=== PATIENT | female | born 2000 | race Caucasian/White ===

== ENCOUNTER 2018-06-27 13:06 | Emergency (ER) | payer OTHER ==
[2018-06-27 13:15] VITALS: BP 113/65; PULSE 98; TEMP 98.2; BMI 21.2
--- NOTE | 2018-06-27 14:10 | PDOC ---
History of Present Illness - General Chief Complaint: Abscess Boil Stated Complaint: TONGUE DISCOMFORT Time Seen by Provider: 06/27/18 13:53 History Source: Patient Exam Limitations: No Limitations - History of Present Illness Initial Comments: 06/27/18 14:09 Came for evaluation of lesion to lower gingival border anterior to of tongue. States is nontender but swells in the morning. Has had no trauma however admits may have had a hot cup of hot chocolate this week and may burned her mouth. Timing/Duration: unsure Severity: mild Past History - Travel Traveled outside of the country in the last 30 days: No Close contact w/someone who was outside of country & ill: No - Past Medical History Allergies/Adverse Reactions: Allergies Allergy/AdvReac Type Severity Reaction Status Date / Time No Known Allergies Allergy Verified 06/27/18 13:15 Home Medications: Ambulatory Orders NK [No Known Home Medication] 06/27/18 Asthma: No Cancer: No Cardiac Disorders: No COPD: No Diabetes: No HTN: No Seizures: No Thyroid Disease: No - Immunization History Immunization Up to Date: Yes - Suicide/Smoking/Psychosocial Hx Smoking Status: No Smoking History: Never smoked Have you smoked in the past 12 months: No Number of Cigarettes Smoked Daily: 0 Hx Alcohol Use: No Drug/Substance Use Hx: No Hx Substance Use Treatment: No Review of Systems - Review of Systems Able to Perform ROS?: Yes Is the patient limited Thai proficient: Yes Constitutional: Yes: Symptoms Reported, See HPI, Malaise HEENTM: Yes: Symptoms Reported, Dental Problems, Mouth Swelling Musculoskeletal: No: Symptoms Reported Integumentary: No: Symptoms Reported Neurological: No: Symptoms reported All Other Systems: Reviewed and Negative *Physical Exam - Vital Signs Last Vital Signs Temp Pulse Resp BP Pulse Ox 98.2 F 98 H 18 113/65 99 06/27/18 13:12 06/27/18 13:12 06/27/18 13:12 06/27/18 13:12 06/27/18 13:12 - Physical Exam General Appearance: Yes: Nourished, Appropriately Dressed. No: Apparent Distress HEENT: positive: NICOLE, Normal ENT Inspection, TMs Normal, Pharynx Normal, Other (small papular lesion to the anterior aspect lower gum border anterior to frenulum of tongue. His nontender, non-erythematous, no drainage noted.). negative: Rhinorrhea Neck: positive: Supple. negative: Tender, Lymphadenopathy (R), Lymphadenopathy (L) Respiratory/Chest: positive: Lungs Clear, Normal Breath Sounds Gastrointestinal/Abdominal: positive: Soft Extremity: positive: Normal Capillary Refill Integumentary: positive: Normal Color, Dry, Warm Neurologic: positive: oriental medicine practitioner II-XII NML intact, Fully Oriented, Alert, Normal Mood/ Affect, Normal Response, Motor Strength 5/5 *DC/Admit/Observation/Transfer Diagnosis at time of Disposition: Oral mucosal lesion - Discharge Dispostion Disposition: HOME Condition at time of disposition: Stable Decision to Admit order: No - Referrals - Patient Instructions Printed Discharge Instructions: Gingivitis Additional Instructions: Rest, drink lots of fluids: Teas, water, soups Saltwater gargles/ keep mouth clean and rinse after each meal May use wet teabag for pain relief to area Avoid hard chewing foods, stick to ice cream, Jell-O, yogurt etc. Tylenol or Motrin for fever and pain Complete all medication as prescribed Seek dental appointment as soon as possible for evaluation of lesion Followup with private physician in one to 2 days as needed Return to emergency department for worsened symptoms, fevers, swelling to face or worsened pain - Post Discharge Activity
== END 2018-06-27 14:12 | disposition home or self-care (01) ==
LOC: JERFT 13:06
DX: K13.79 Other lesions of oral mucosa (principal)
CPT/HCPCS: 99281-25

== ENCOUNTER 2019-04-23 15:53 | Emergency (ER) | payer OTHER ==
[2019-04-23 16:11] VITALS: BP 105/61; PULSE 85; TEMP 98.9; BMI 21.4
--- NOTE | 2019-04-23 16:19 | PDOC ---
History of Present Illness - General Chief Complaint: Foreign Body (FB) Stated Complaint: F/B IN EAR Time Seen by Provider: 04/23/19 16:09 History Source: Patient - History of Present Illness Timing/Duration: 4-6 hours Past History - Past Medical History Allergies/Adverse Reactions: Allergies Allergy/AdvReac Type Severity Reaction Status Date / Time No Known Allergies Allergy Verified 06/27/18 13:15 Home Medications: Ambulatory Orders NK [No Known Home Medication] 06/27/18 Asthma: No Cancer: No Cardiac Disorders: No COPD: No Diabetes: No HTN: No Seizures: No Thyroid Disease: No - Immunization History Immunization Up to Date: Yes - Psycho Social/Smoking Cessation Hx Smoking Status: No Smoking History: Never smoked Have you smoked in the past 12 months: No Number of Cigarettes Smoked Daily: 0 Information on smoking cessation initiated: No Hx Alcohol Use: No Drug/Substance Use Hx: No Hx Substance Use Treatment: No Review of Systems - Review of Systems HEENTM: No: Ear Pain *Physical Exam - Vital Signs Last Vital Signs Temp Pulse Resp BP Pulse Ox 98.9 F 85 18 105/61 98 04/23/19 16:08 04/23/19 16:08 04/23/19 16:08 04/23/19 16:08 04/23/19 16:08 - Physical Exam General Appearance: Yes: Appropriately Dressed. No: Apparent Distress HEENT: positive: Normal ENT Inspection, Normal Voice, TMs Normal, Pharynx Normal. negative: Scleral Icterus (R), Scleral Icterus (L) Neck: positive: Supple Respiratory/Chest: negative: Respiratory Distress Integumentary: positive: Dry, Warm Neurologic: positive: Fully Oriented, Alert, Normal Mood/Affect Medical Decision Making - Medical Decision Making 04/23/19 16:15 18-year-old female, no significant history, here for evaluation to rule out possible foreign body in her R ear. Patient states she was playing around with a small round glenn today and then stuck her finger in her R ear and now concerned glenn might be in her ear. No pain, otorrhea or change to hearing. Exam wnl, no fb visualized in ear. Dc w/ reassurance Discharge - Discharge Information Problems reviewed: Yes Clinical Impression/Diagnosis: Evaluation by medical service required Condition: Good Disposition: HOME - Follow up/Referral - Patient Discharge Instructions Additional Instructions: There is no evidence of any foreign body in your ear. - Post Discharge Activity
== END 2019-04-23 16:23 | disposition home or self-care (01) ==
LOC: JERFT 15:53
DX: Z03.89 Encounter for observation for other suspected diseases and conditions ruled out (principal)
CPT/HCPCS: 99281-25